=== PATIENT | male | born 1995 | race Two or more races ===

== ENCOUNTER 2024-05-03 13:41 | Emergency (ER) | payer OTHER, SELFPAY ==
[~2024-05-03] VITALS: Ht 165.1 cm; Wt 67.6 kg
[2024-05-03 14:37] VITALS: BP 124/71; PULSE 52; RESP 18; TEMP 98; O2SAT 100
[2024-05-03] MEDS ORDERED: BAC09TP TOP (15:03)
[2024-05-03] MEDS ORDERED: BACDST PO (15:03)
[2024-05-03] MEDS: cefTRIAXone SOD 1,000 MG VL IM ONE (15:09)
== END 2024-05-03 15:18 | disposition home or self-care (01) ==
LOC: ER 13:41
DX: S31.21XA Laceration without foreign body of penis, initial encounter (principal); X58.XXXA Exposure to other specified factors, initial encounter; Y93.89 Activity, other specified; Y92.89 Other specified places as the place of occurrence of the external cause; Y99.8 Other external cause status
CPT/HCPCS: 96372; 99283; J0696